=== PATIENT | female | born 1980 | race Caucasian/White ===

== ENCOUNTER 2021-04-11 02:05 | Emergency (ER) | payer OTHER ==
[2021-04-11 02:43] LABS: HEMOGLOBIN 13.6 gm/dl (12.3-15.3); RED BLOOD COUNT 4.96 M/UL (4.00-5.10); WHITE BLOOD COUNT 11.5 K/UL (4.5-11.0)
[2021-04-11 03:03] LABS: BUN/CREATININE RATIO 14 (0-10)
[2021-04-11] MEDS ORDERED: METRONIDAZOLE500 MG PO (05:11)
[2021-04-11] MEDS ORDERED: ZOFRAN4 MG PO (05:11)
[2021-04-11] MEDS ORDERED: PHENERGAN 50 MG50 MG PR (05:32)
== END 2021-04-11 08:30 | disposition home or self-care (01) ==
LOC: ER1 02:05
PROVIDERS: Physician Assistant
DX: K52.9 Noninfective gastroenteritis and colitis, unspecified (principal); Z20.822 Contact with and (suspected) exposure to COVID-19; F17.290 Nicotine dependence, other tobacco product, uncomplicated
CPT/HCPCS: 71045; 80053; 81001; 82550; 82553; 83605; 83690; 83874; 84484; 84703; 85025; 87086; 93005; 96365; 96367; 96375; 96376; 99285; J1170; J1885; J2060; J2270; J2405; J2550; Q9967; U0002

== ENCOUNTER → 2021-04-27 | Outpatient (CLI) | payer OTHER ==
[~2021-04-27] MED LIST: METRONIDAZOLE500 MG PO; PHENERGAN 50 MG50 MG PR; ZOFRAN4 MG PO
== END ==
LOC: KOH-I 08:00
DX: R93.2 Abnormal findings on diagnostic imaging of liver and biliary tract (principal); K80.20 Calculus of gallbladder without cholecystitis without obstruction
CPT/HCPCS: 76705